=== PATIENT | female | born 1980 | race Caucasian/White ===

== ENCOUNTER 2017-02-13 09:54 | Emergency (ER) | payer MEDICAID | END 2017-02-13 12:58 | disposition home or self-care (01) | LOC: D.ER 09:54 | DX: N61.1 Abscess of the breast and nipple (principal) ==

== ENCOUNTER 2017-02-18 18:22 | Emergency (ER) | payer MEDICAID | END 2017-02-18 19:44 | disposition home or self-care (01) | LOC: D.ER 18:22 | DX: N61.1 Abscess of the breast and nipple (principal) ==